=== PATIENT | female | born 1940 | race Caucasian/White ===

== ENCOUNTER 2024-08-05 11:49 | Inpatient (IN) | payer BC ==
[~2024-08-05] VITALS: Ht 167.6 cm; Wt 79.0 kg
--- NOTE | 2024-08-05 12:06 | ELECTROCARDIOGRAPH REPORT ---
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 Hammad Boston Measurements Intervals [place] Rate: 97 P: 0 NH: 0 QRS: 53 QRSD: 116 T: 11 QT: 340 QTc: 432 Interpretive Statements Atrial fibrillation Incomplete right bundle branch block Electronically Signed On 08-05-2024 22:15:[address] Hammad Boston Please click the below link to view image of tracing.
[2024-08-05 12:44] LABS: BASOPHILS % (AUTO) 0.3 % (0-1); EOSINOPHILS % (AUTO) 0.1 % (0-6); HEMATOCRIT 40.7 % (35.0-45.0); HEMOGLOBIN 13.9 g/dl (12.0-16.0); LYMPHOCYTES # (AUTO) 1.3 X10'3 (1.1-4.8); LYMPHOCYTES % (AUTO) 12.9 % (21-51); MEAN CORPUSCULAR HEMOGLOBIN 31.9 PG (27.0-31.0); MEAN CORPUSCULAR HGB CONC 34.2 g/dL (33.0-36.5); MEAN CORPUSCULAR VOLUME 93.4 FL (78-98); MONOCYTES % (AUTO) 9.9 % (2-12); NEUTROPHILS % (AUTO) 76.8 % (42-75); PLATELET COUNT 257 X10'3 (140-440); RED BLOOD COUNT 4.36 X10'6 (4.20-5.60); RED CELL DISTRIBUTION WIDTH 13.1 % (11.5-14.5); WHITE BLOOD COUNT 10.5 X10'3 (4.5-11.0)
[2024-08-05 12:56] LABS: ALANINE AMINOTRANSFERASE 19 U/L (12-78); ALBUMIN 3.6 G/DL (3.4-5.0); ALBUMIN/GLOBULIN RATIO 0.9 (1.1-1.5); ALKALINE PHOSPHATASE 103 IU/L (46-116); ANION GAP 6 (8-16); ASPARTATE AMINO TRANSFERASE 25 U/L (10-37); BILIRUBIN,TOTAL 1.3 MG/DL (0.1-1.0); BLOOD UREA NITROGEN 40 MG/DL (7-18); CALCIUM 9.1 MG/DL (8.5-10.1); CHLORIDE 100 MMOL/L (99-107); CREATININE 1.38 MG/DL (0.40-0.90); GLUCOSE 147 MG/DL (70-104); SODIUM 134 MMOL/L (135-145); TOTAL CARBON DIOXIDE 27.9 MMOL/L (24-32); TOTAL PROTEIN 7.4 G/DL (6.4-8.2); eCRCL 27 ML/MIN; eGFR 36 ML/MIN
--- NOTE | 2024-08-05 13:03 | RADIOLOGY REPORT ---
CHEST RADIOGRAPH Indication: CP Technique: Single frontal view of the chest was obtained Comparison: None FINDINGS: Lines and Tubes: None Lungs: No focal consolidation. There is fullness of the right perihilar region which appears to be fr om image rotation to the left. Pleura: No effusion. No pneumothorax. Cardiomediastinal contours: Unremarkable Bones: No acute osseous abnormality. IMPRESSION: Fullness of the right perihilar region which appears to be from image rotation to the left. Otherwis e, no evidence of acute cardiopulmonary disease.
[2024-08-05 13:05] LABS: PRO BRAIN NATRIURETIC PEPTIDE 686 PG/ML (0-450)
[2024-08-05 13:09] LABS: POTASSIUM 5.5 MMOL/L (3.5-5.1)
--- NOTE | 2024-08-05 14:09 | RADIOLOGY REPORT ---
EXAM: CT CT HEAD INDICATION: ALOC TECHNIQUE: CT of the head without intravenous contrast. Radiation Dose : 1. Head: CT Dose: CTDI volume is 59 mGy. Dose-length product is 1051.9 mGy*cm The dose indicators for CT are the volume Computed Tomography (CT) Dose Index (CTDIvol) and the Dose Length Product (DLP), and are measured in units of mGy and mGy-cm, respectively. These indicators are not patient dose, but values generated from the CT scanner acquisition factors. The report includes radiation exposure data for exposures received during this examination. COMPARISON: None FINDINGS: There is no evidence of acute intracranial hemorrhage, extra-axial collection, mass effect, midline s hift, herniation or hydrocephalus. The ventricles, sulci and cisterns are age appropriate. The mullins-white differentiation is intact. Patchy periventricular and subcortical white matter hypoattenuation is nonspecific but may be related to small vessel ischemic disease. The visualized paranasal sinuses and mastoid air cells are clear. The surrounding soft tissues and osseous structures are unremarkable. IMPRESSION: No acute intracranial abnormality. Radiation optimization: All CT scans at this facility use at least one of these dose optimization francisca hniques: automated exposure control mA and/or kV adjustment per patient size (includes targeted exam s where dose is matched to clinical indication) or iterative reconstruction.
--- NOTE | 2024-08-05 15:28 | Physician Documentation ---
History of Present Illness ~ Chief Complaint: ALOC Stated Complaint: WEAKNESS Time Seen by MD: 12:18 OK to notify your PCP?: Yes Primary Medical Doctor: UNKNOWN Mode of Arrival: EMS HPI 84-year-old female patient was brought to the emergency room by ambulance because she was found to be in stool lying down. She told me that she fell because she lost her balance. Now she is feeling much improved. She lives alone and she has progressive dementia since her passed. Medication Reconciliation Allergies: Coded Allergies: No Known Allergies (Unverified , 08/05/24) Review of Systems ROS As stated above in the HPI, otherwise all systems are reviewed and negative. Physical Exam Vital Signs: Temperature: 98.1, Heart Rate: 102, Respiratory Rate: 18, BP: 140/82, Pulse Oximetry: 98, Weight: 79.000 Oxygen Flow Rate: 0 Physical Exam Reviewed vital signs and they are well within normal range. Const: Not in acute cardiopulmonary distress Head: Atraumatic Eyes: Normal Conjunctiva ENT: Normal External Ears, Nose and Mouth. Moist mucous membranes Neck: Full range of motion. No meningismus Resp: Clear to auscultation bilaterally. Normal work of breathing Cardio: Regular rate and rhythm, no murmurs. Skin well perfused Abd: Soft, non-tender, non-distended. Normal bowel sounds. No rebound or guarding Skin: No petechiae or rashes. Warm and dry Back: No midline or flank tenderness Ext: No cyanosis, or edema Neuro: Awake and alert Psych: Normal Mood and Affect Progress Results/Orders Results/Orders Orders - DONTAE MIRZA MD Chest,Single View (08/05/24 12:46) Monitor (08/05/24 12:02) Saline Lock (08/05/24 12:02) Oxygen (08/05/24 12:02) Ct Head (08/05/24 13:50) Completed Orders - DONTAE MIRZA MD Chest,Single View (08/05/24 12:46) Cbc/Diff (08/05/24 12:02) PBNP (08/05/24 12:02) Electrocardiogram (08/05/24 12:02) CMP (08/05/24 12:02) Hs Troponin I W Calculations (08/05/24 12:02) Hs Troponin I W Calculations (08/05/24 14:02) Hs Troponin I W Calculations (08/05/24 15:02) Ct Head (08/05/24 13:50) Vital Signs 08/05/24 08/05/24 08/05/24 08/05/24 11:56 12:03 12:03 13:49 Temp 98.1 Pulse 110 107 102 Resp 16 16 18 B/P (MAP) 146/70 120/65 (83) 140/82 (101) Pulse Ox 98 100 98 O2 Flow Rate 0 0 0 Laboratory Tests Test 08/05/24 12:27 08/05/24 14:09 08/05/24 14:46 White Blood Count 10.5 Red Blood Count 4.36 Hemoglobin 13.9 Hematocrit 40.7 Mean Corpuscular Volume 93.4 Mean Corpuscular Hemoglobin 31.9 H Mean Corpuscular Hemoglobin Concent 34.2 Red Cell Distribution Width 13.1 Platelet Count 257 Mean Platelet Volume 8.0 Neutrophils (%) (Auto) 76.8 H Lymphocytes (%) (Auto) 12.9 L Monocytes (%) (Auto) 9.9 Eosinophils (%) (Auto) 0.1 Basophils (%) (Auto) 0.3 Neutrophils # (Auto) 8.0 H Lymphocytes # (Auto) 1.3 Monocytes # (Auto) 1.0 H Eosinophils # (Auto) 0.0 Basophils # (Auto) 0.0 CBC Comment Sodium Level 134 L Potassium Level 5.5 H Chloride Level 100 Carbon Dioxide Level 27.9 Anion Gap 6 L Blood Urea Nitrogen 40 H Creatinine 1.38 H Estimated GFR/1.73 m2 36 BUN/Creatinine Ratio 29.0 H Glucose Level 147 H Calcium Level 9.1 Total Bilirubin 1.3 H Aspartate Amino Transf (AST/SGOT) 25 Alanine Aminotransferase (ALT/SGPT) 19 Alkaline Phosphatase 103 Troponin I High Sensitivity 24 35 39 Pro-B-Type Natriuretic Peptide 686 H Total Protein 7.4 Albumin 3.6 Globulin 3.8 Albumin/Globulin Ratio 0.9 L Chemistry Comments Troponin I High Sens Percent Delta 45 11 Troponin I Hi Sens Absolute Change 11 4 Medical Decision Making Findings During the physical examination, the findings suggestive of acute life- threatening condition such as JVD, tracheal deviation, acidotic breathing, noisy stridorous breath sounds, pulses paradoxus, muffled heart sounds, unequal breath sounds, abdominal rigidity and rebound tenderness, focal neurological deficits, cool clammy skin, severe hypotension, severe tachycardia or bradycardia are absent. Patient's lab results CBC CMP reassuring except elevated BUN and creatinine at 40/1.[address] is negative for acute processes. Her troponin is 24/35/39. As she was stabilized we did the road test and she could not ambulate well and she is at a high-risk of falling and injuring herself. Therefore she is admitted to the hospital for physical therapy evaluation and treatment. DISCLAIMER Inadvertent spelling and grammatical errors,inadvertent clinic coordinator errors,syntax errors, grammatical errors, and spelling errors are likely due to EMR/dictation software use and do not reflect on the overall quality of patient care. Note that the electronic time recorded on this note does not necessarily reflect the actual time of the patient encounter. Departure Disposition: ADMITTED INPATIENT Impression: Primary Impression: Dementia Additional Impression: Unable to ambulate Referrals: NO PRIMARY CARE PROVIDER (PCP) Signature Scribe Signature: x Attestation: DONTAE Patel MD August 05, 2024 15:28
[2024-08-05] MEDS ORDERED: potassium Cl 20 mEq SR tablet PO PRN (15:30)
[2024-08-05] MEDS ORDERED: potassium Cl 40MEQ/1/2NS 520ml 520 ML IV PRN (15:30)
[2024-08-05] MEDS ORDERED: magnesium sulf-water 2g/50mL 50 ML IV PRN (15:30)
[2024-08-05] MEDS ORDERED: mag hydrox/Alum hydrox/simeth 30ml oral suspension PO PRN (15:30)
[2024-08-05] MEDS ORDERED: magnesium hydroxide 30ml (MOM) UD suspension PO PRN (15:30)
[2024-08-05] MEDS ORDERED: ondansetron 4mg rapidly disintigrating tab PO PRN (15:30)
[2024-08-05] MEDS ORDERED: ondansetron/PF 4mg/2ml inj IV PRN (15:30)
[2024-08-05] MEDS ORDERED: magnesium sulf-water 4G/100mL 100 ML IV PRN (15:30)
[2024-08-05] MEDS ORDERED: acetaminophen 325mg tablet PO PRN ×2 (15:30)
[2024-08-05] MEDS ORDERED: LISI5TAB22 PO (16:18)
[2024-08-05] MEDS ORDERED: TRIA1TAB5 PO (16:18)
[2024-08-05] MEDS: normal saline 1000ml 1,000 ML IV SCH (16:19)
[2024-08-05] MEDS: PERFLUTREN PROTEIN-A MICROSPHR (Optison) 0.22 MG/ML 3ML VIAL IV ONE (16:20)
--- NOTE | 2024-08-05 16:23 | HISTORY AND PHYSICAL ---
History & Physical Providers to CC ~ History of Present Illness Reason for Admit\Complaint: Metabolic encephalopathy, hyperkalemia, KAMRAN, afib rvr History of Present Illness Ana Lilia Steel is a 84-year-old female with a past medical history of hypertension, hyperlipidemia, CVA 10 years ago, dementia who was brought to the ED after unwitnessed mechanical fall that occurred today. Per patient's son at bedside, patient was found covered in feces after a fall. Patient's son reports patient experiencing severe bilateral lower extremity weakness along with altered level consciousness including incoherent speech that is not her baseline. Patient denies prior KS/CAD, cardiac arrhythmia, CKD, DVT/PE, or GIB. Patient denies chest pain, palpitations, shortness of breath, abdominal pain, n/v. Initial diagnostic findings are notable for hyperkalemia, renal insufficiency, EKG indicating AFib at a rate of 97 bpm without ischemic changes. On my physical assessment on admission, patient's cognition improved significantly with A&Ox3. Patient is to be admitted for further workups and treatment. Allergies: Coded Allergies: No Known Allergies (Unverified , 08/05/24) Past Medical History Past Medical History Hypertension Hyperlipidemia CVA, 10 years ago Dementia Past Surgical History Surgical History Comment Noncontributory Past Social History Social History Comment Alcohol: Denies Tobacco: Denies, never Illicit Drug use: Denies Living situation: Lives at home alone ROS ROS Other than positives in HPI, all 14 review of systems are negative Exam Vitals: Vital Signs Date Time Temp Pulse Resp B/P (MAP) Pulse Ox O2 Delivery O2 Flow Rate FiO2 08/05/24 13:49 102 18 140/82 (101) 98 0 08/05/24 11:56 98.1 General: A&Ox 3, NAD HEENT: Normocephalic, PERRLA Neck: Supple, trachea midline, no JVD Chest: Clear to auscultation bilaterally Cardiovascular: IRIR Abdomen: Soft and nontender Extremities: No cyanosis/clubbing/or edema Central Nervous System: No focal deficits Musculoskeletal: No paraspinal muscle tenderness, no muscle spasm Skin: Intertrigo, inguinal Diagnostic Data Last Recorded Lab Results: 08/05/24 1227 08/05/24 1227 Additional Plan # Dehydration # Hyperkalemia # Hyponatremia # Metabolic encephalopathy 2/2 above # Dementia # Gait imbalance # Generalized weakness # KAMRAN vs CKD -diarrhea today, reported poor oral intake; CXR unremarkable -Lokelma, IVNS; follow labs including UA, procal # Atrial fibrillation w/ RVR, CHADS-VASc 6 -tele in 110s, start Eliquis, metoprolol tart; follow TTE, TSH/T4 # HTN # HLD # Hx CVA, 10 yrs ago unknown cause -follow lipid panel, prn hydralazine, start metoprolol tart, aspirin, statin # Intertrigo, inguinal -topical angifungal DVT/VTE Prophylaxis: Eliquis Code Status: DNR/DNI Disposition: Admit on tele I spent a total of 35 minutes discussing Advanced Care Planning measures with the patient and her son at bedside. Advance care planning: Discussed with patient the importance of advance care planning in case of emergent situation. We discussed various resuscitative measures/ ACP with the patient at the time of admission. Patient voiced understanding and patient has decided on a DNR/DNI status. Date of Service: August 05, 2024 Billing Provider: SAMMY FLOYD Common Visit Codes: 70918-[id number] INP/OBS CARE (HIGH) Secondary Visit Codes: [id number]-[id number] CARE PLAN 30 MINUTES SAMMY FLOYD August 05, 2024 16:23
[2024-08-05] MEDS ORDERED: metoprolol succinate 25mg (24-HOUR) SR. Tablet PO ONE (16:25)
[2024-08-05] MEDS ORDERED: PATIROMER CALCIUM SORBITEX 8.4 GM POWD.PACK PO ONE (16:35)
[2024-08-05 16:40] LABS: BILIRUBIN,URINE NEGATIVE (Neg); CLARITY,URINE SLIGHTLY CLOUDY (Clear); COLOR,URINE YELLOW (Yellow); GLUCOSE, URINE NEGATIVE (Neg); KETONES,URINE NEGATIVE (Neg); LEUKOCYTE ESTERASE ,URINE MODERATE (Neg); NITRITES, URINE NEGATIVE (Neg); OCCULT BLOOD,URINE SMALL (Neg); PH,URINE 6.5 (4.8-8.0); PROTEIN,URINE NEGATIVE (Neg); UROBILINOGEN,URINE 0.2 E.U/dL (0.2-1.0)
[2024-08-05 16:48] LABS: UA COLLECTION TYPE VOIDED
[2024-08-05 16:50] LABS: TOTAL PROTEIN,URINE RANDOM 22.5 MG/DL
[2024-08-05 16:54] LABS: AMORPHOUS URATES 1+; BACTERIA,URINE 2+ /HPF (Neg); MUCUS STRANDS FEW /LPF (Neg); SQUAMOUS EPITHELIAL CELL,UR FEW /LPF (FEW); URIC ACID CRYSTALS FEW /HPF (NEGATIVE); WBC,URINE 20-30 /HPF (0-4)
[2024-08-05] MEDS: aspirin 81mg, enteric-coated 1 TAB TABLET.DR PO ONE (17:10)
[2024-08-05] MEDS: metoprolol tartrate 1mg/ml inj IV ONE (17:11)
[2024-08-05] MEDS: SODIUM ZIRCONIUM CYCLOSILICATE 10 GM POWD.PACK PO ONE (17:11)
[2024-08-05 18:55] VITALS: BP 135/65; PULSE 73; RESP 16; TEMP 97.8; O2SAT 97
[2024-08-05] MEDS: metoprolol tartrate 25mg tablet PO SCH (19:15)
[2024-08-05] MEDS: docusate sod 100mg capsule PO SCH (19:15)
[2024-08-05] MEDS: nystatin 15 GM powder TP SCH (19:16)
[2024-08-05] MEDS: atorvastatin 20mg tablet PO SCH (19:16)
[2024-08-05] MEDS: K and/or MAG REPLACEMENT MC SCH (19:16)
[2024-08-05] MEDS: apixaban 5mg tablet PO SCH (19:16)
[2024-08-05 20:00] VITALS: RESP 16; O2SAT 97
[2024-08-05] MEDS ORDERED: heparin, porcine 5000 units/ml vial SQ SCH (20:00)
[2024-08-05 22:00] VITALS: BP 98/76; PULSE 61; RESP 18; TEMP 96.4; O2SAT 99
--- NOTE | 2024-08-05 22:19 | CARDIOLOGY REPORT ---
APPROVED REPORT EXAM: Comprehensive 2D, Doppler, and color-flow Echocardiogram. 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 187.7 cm/s AoV VTI 33.3 cm AO Peak GR. 14.1 mmHg AO Mean GR. 7 mmHg LVOT VTI 25.08 cm LVOT Peak Rene. 134.6 cm/s RACHEL(VTI)/BSA 2.59 cm2/m2 RACHEL (VTI) 2.59 cm2 Mitral Valve MV E Velocity 94.9 cm/s MV Peak Gr. 8 mmHg MV DECEL TIME 136 ms MV PHT 28 ms MVA (PHT) 7.86 cm2 MV MGyo710.4 cm/s Tricuspid Valve RAP ESTIMATE 10 mmHg LEFT VENTRICLE LV is normal in size with mild concentric hypertrophy. Overall systolic function is normal. LVEF is 7 0%. RIGHT VENTRICLE RV is normal size and function. ATRIA Left atrium is mildly dilated. AORTIC VALVE Trileaflet AV appears sclerotic without stenosis. No insufficiency. MITRAL VALVE MV is thickened with mild annular calcification and no stenosis. Mild mitral regurgitation. TRICUSPID VALVE The tricuspid valve is normal in structure. Trace tricuspid regurgitation. PULMONIC VALVE The pulmonary valve is normal in structure. Trace pulmonic regurgitation. GREAT VESSELS The aortic root is normal in size. Ascending aorta measured at 3.5 cm. IVC is not well visualized. PERICARDIUM There is no pericardial effusion. Other Information Study Quality: Adequate Conclusion LV is normal in size with mild concentric hypertrophy. Overall systolic function is normal. LVEF is 7 0%. RV is normal size and function. Left atrium is mildly dilated. Trileaflet AV appears sclerotic without stenosis. No insufficiency. MV is thickened with mild annular calcification and no stenosis. Mild mitral regurgitation. The tricuspid valve is normal in structure. Trace tricuspid regurgitation. The pulmonary valve is normal in structure. Trace pulmonic regurgitation. Ascending aorta measured at 3.5 cm. There is no pericardial effusion.
[2024-08-06 05:00] VITALS: BP 112/80; PULSE 57; RESP 14; TEMP 97.1; O2SAT 97
[2024-08-06 06:39] LABS: BASOPHILS % (AUTO) 0.4 % (0-1); EOSINOPHILS # (AUTO) 0.2 X10'3 (0-0.9); EOSINOPHILS % (AUTO) 1.7 % (0-6); HEMATOCRIT 36.6 % (35.0-45.0); HEMOGLOBIN 12.6 g/dl (12.0-16.0); LYMPHOCYTES # (AUTO) 2.2 X10'3 (1.1-4.8); LYMPHOCYTES % (AUTO) 25.2 % (21-51); MEAN CORPUSCULAR HEMOGLOBIN 32.3 PG (27.0-31.0); MEAN CORPUSCULAR HGB CONC 34.4 g/dL (33.0-36.5); MEAN CORPUSCULAR VOLUME 93.7 FL (78-98); MEAN PLATELET VOLUME 8.6 FL (7.4-10.4); MONOCYTES # (AUTO) 0.9 X10'3 (0-0.9); MONOCYTES % (AUTO) 10.6 % (2-12); NEUTROPHILS # (AUTO) 5.4 X10'3 (1.8-7.7); NEUTROPHILS % (AUTO) 62.1 % (42-75); PLATELET COUNT 239 X10'3 (140-440); RED CELL DISTRIBUTION WIDTH 13.1 % (11.5-14.5); WHITE BLOOD COUNT 8.7 X10'3 (4.5-11.0)
[2024-08-06 07:08] LABS: ALANINE AMINOTRANSFERASE 15 U/L (12-78); ALBUMIN 2.7 G/DL (3.4-5.0); ALBUMIN/GLOBULIN RATIO 0.8 (1.1-1.5); ALKALINE PHOSPHATASE 82 IU/L (46-116); ANION GAP 4 (8-16); ASPARTATE AMINO TRANSFERASE 22 U/L (10-37); BILIRUBIN,TOTAL 1.3 MG/DL (0.1-1.0); BLOOD UREA NITROGEN 29 MG/DL (7-18); BUN/CREATININE RATIO 27.6 (10.0-20.0); CALCIUM 8.4 MG/DL (8.5-10.1); CHLORIDE 104 MMOL/L (99-107); CHOL/HDL RATIO 3.5 (0.00-4.99); CHOLESTEROL 177 MG/DL (0-200); CREATININE 1.05 MG/DL (0.40-0.90); FREE T4 (FREE THYROXINE) 1.02 NG/DL (0.73-1.40); GLUCOSE 95 MG/DL (70-104); HDL CHOLESTEROL 50 MG/DL (35-60); LDL CHOLESTEROL 117 MG/DL (50-100); MAGNESIUM 1.8 MG/DL (1.5-2.4); POTASSIUM 3.4 MMOL/L (3.5-5.1); SODIUM 136 MMOL/L (135-145); THYROID STIMULATING HORMONE 1.01 ulU/ml (0.34-4.50); TOTAL PROTEIN 5.9 G/DL (6.4-8.2); TRIGLYCERIDES 54 MG/DL (20-135); eCRCL 36 ML/MIN; eGFR 50 ML/MIN
[2024-08-06] MEDS ORDERED: metoprolol succinate 25mg (24-HOUR) SR. Tablet PO SCH (08:00)
[2024-08-06] MEDS: aspirin 81mg, enteric-coated 1 TAB TABLET.DR PO SCH (08:07)
[2024-08-06] MEDS: CefTRIAXone 2gm/D5W 50ml BAG 50 ML IV SCH (08:11)
--- NOTE | 2024-08-06 09:12 | RADIOLOGY REPORT ---
EXAM: US Retroperitoneal Limited, Renal CLINICAL INDICATION: kassy TECHNIQUE: Real-time limited ultrasound of the retroperitoneum with image documentation. COMPARISON: None FINDINGS: RIGHT KIDNEY: Unremarkable. No stones. No hydronephrosis. The right kidney measures 8.3 x 4.0 x 5.4 cm. LEFT KIDNEY: Unremarkable. No stones. No hydronephrosis. The left kidney measures 9.1 x 4.0 x 2. 8 cm. BLADDER: Urinary bladder appears normal for its size of distension. Prevoid volume 180 cc. OTHER FINDINGS: . . . . . . IMPRESSION: No acute findings in the retroperitoneum.
[2024-08-06 10:00] VITALS: BP 90/32; PULSE 60; RESP 16; TEMP 98; O2SAT 99
--- NOTE | 2024-08-06 12:57 | PROGRESS NOTE ---
Daily Progress Note Providers to CC ~ Antibiotic Timeout Antibiotic Ordered?: Yes If Yes, Indications: UTI Subjective No acute events overnight. Patient examined at bedside. No new complaints, not in acute distress. Patient denies chest pain, sob, palpitations, abdominal pain, n/v/d. Vss, labs notable for resolving acute kidney injury and resolved hyperkalemia. Renal ultrasound negative. Afib RVR, converted and controlled. Tele sinus in high 50s. TTE shows mild left atrium dilation, LVEF of 70% and without significant valvular heart disease. Lytes unremarkable, afebrile, TSH/T4 wnl. Patient is clinically and hemodynamically stable. 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: CN II-XII intact, no focal deficits Musculoskeletal: No paraspinal muscle tenderness, no muscle spasm Skin: Intertrigo, inguinal Problem\Assessment\Plan # Dehydration # Hyperkalemia # Hyponatremia # UTI- POA # Metabolic encephalopathy 2/2 above # Dementia # Gait imbalance # Generalized weakness # Prerenal KAMRAN 2/2 dehydration/vasomotor nephropathy- POA -diarrhea today, reported poor oral intake; CXR unremarkable -Lokelma, IVNS; follow labs including UA, procal -08/06: renal function improving, hyperkalemia resolved; urine positive for UTI, renal ultrasound negative; started ceftriaxone, follow culture # Atrial fibrillation w/ RVR, CHADS-VASc 6 -tele in 110s, start Eliquis, metoprolol tart; follow TTE, TSH/T4 -08/06: tele sinus in high 50s; TTE shows mild left atrium dilation, LVEF of 70% and without significant valvular heart disease. TSH/T4 wnl, lytes unremarkable. # HTN # HLD # Hx CVA, 10 yrs ago unknown cause -follow lipid panel, prn hydralazine, start metoprolol tart, aspirin, statin # Intertrigo, inguinal -topical angifungal DVT/VTE Prophylaxis: Eliquis Code Status: DNR/DNI Disposition: Admit on tele Date of Service: August 06, 2024 Billing Provider: SAMMY FLOYD Common Visit Codes: [id number] INP/OBS CARE(HIGH) SAMMY FLOYD August 06, 2024 12:57
[2024-08-06 18:00] VITALS: BP 98/52; PULSE 71; RESP 15; TEMP 98.8; O2SAT 96
[2024-08-06 20:00] VITALS: RESP 15; O2SAT 96
[2024-08-06 22:00] VITALS: BP 105/39; PULSE 64; RESP 16; TEMP 97.4; O2SAT 98
[2024-08-07 05:00] VITALS: BP 108/44; PULSE 16; RESP 14; TEMP 97.9; O2SAT 99
[2024-08-07 06:30] LABS: BASOPHILS # (AUTO) 0.1 X10'3 (0-0.2); BASOPHILS % (AUTO) 0.9 % (0-1); EOSINOPHILS # (AUTO) 0.2 X10'3 (0-0.9); EOSINOPHILS % (AUTO) 1.8 % (0-6); HEMOGLOBIN 12.1 g/dl (12.0-16.0); LYMPHOCYTES # (AUTO) 2.5 X10'3 (1.1-4.8); LYMPHOCYTES % (AUTO) 28.5 % (21-51); MEAN CORPUSCULAR HEMOGLOBIN 32.3 PG (27.0-31.0); MEAN CORPUSCULAR HGB CONC 34.5 g/dL (33.0-36.5); MEAN CORPUSCULAR VOLUME 93.6 FL (78-98); MEAN PLATELET VOLUME 8.8 FL (7.4-10.4); MONOCYTES # (AUTO) 0.9 X10'3 (0-0.9); MONOCYTES % (AUTO) 10.3 % (2-12); NEUTROPHILS # (AUTO) 5.1 X10'3 (1.8-7.7); NEUTROPHILS % (AUTO) 58.5 % (42-75); PLATELET COUNT 217 X10'3 (140-440); RED BLOOD COUNT 3.74 X10'6 (4.20-5.60); RED CELL DISTRIBUTION WIDTH 13.2 % (11.5-14.5); WHITE BLOOD COUNT 8.7 X10'3 (4.5-11.0)
[2024-08-07 07:02] LABS: ALANINE AMINOTRANSFERASE 16 U/L (12-78); ALBUMIN 2.3 G/DL (3.4-5.0); ALBUMIN/GLOBULIN RATIO 0.7 (1.1-1.5); ALKALINE PHOSPHATASE 85 IU/L (46-116); ANION GAP 6 (8-16); ASPARTATE AMINO TRANSFERASE 21 U/L (10-37); BILIRUBIN,TOTAL 0.6 MG/DL (0.1-1.0); BLOOD UREA NITROGEN 20 MG/DL (7-18); BUN/CREATININE RATIO 20.8 (10.0-20.0); CALCIUM 8.1 MG/DL (8.5-10.1); CHLORIDE 108 MMOL/L (99-107); CREATININE 0.96 MG/DL (0.40-0.90); GLUCOSE 95 MG/DL (70-104); MAGNESIUM 1.7 MG/DL (1.5-2.4); POTASSIUM 3.1 MMOL/L (3.5-5.1); SODIUM 141 MMOL/L (135-145); TOTAL CARBON DIOXIDE 27.5 MMOL/L (24-32); TOTAL PROTEIN 5.5 G/DL (6.4-8.2); eCRCL 39 ML/MIN; eGFR 55 ML/MIN
[2024-08-07 10:00] VITALS: BP 117/61; PULSE 62; RESP 14; TEMP 98.6; O2SAT 98
[2024-08-07] MEDS: potassium Cl 20 mEq SR tablet PO PRN (10:01)
--- NOTE | 2024-08-07 10:04 | PROGRESS NOTE ---
Daily Progress Note Providers to CC ~ Antibiotic Timeout Antibiotic Ordered?: Yes Subjective No acute events overnight. Patient examined at bedside. No new complaints, not in acute distress. Patient denies chest pain, sob, palpitations, abdominal pain, n/v/d. Vss, labs notable for resolving acute kidney injury. Renal ultrasound negative. Urine culture resulted positive for E.coli, continued on ceftriaxone. Afib RVR, converted and controlled. Tele sinus in high 50s. Patient is clinically and hemodynamically stable. 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, no focal deficits Musculoskeletal: No paraspinal muscle tenderness, no muscle spasm Skin: Intertrigo, inguinal Problem\Assessment\Plan # Dehydration # Hyperkalemia # Hyponatremia # UTI- POA # Metabolic encephalopathy 2/2 UTI # Dementia # Gait imbalance # Generalized weakness # Prerenal KAMRAN 2/2 dehydration/vasomotor nephropathy- POA -diarrhea today, reported poor oral intake; CXR unremarkable -Lokelma, IVNS; follow labs including UA, procal -08/06: renal function improving, hyperkalemia resolved; urine positive for UTI, renal ultrasound negative; started ceftriaxone, follow culture -08/07: urine culture resulted positive for E.coli, continue ceftriaxone # Atrial fibrillation w/ RVR, CHADS-VASc 6 -tele in 110s, start Eliquis, metoprolol tart; follow TTE, TSH/T4 -08/06: tele sinus in high 50s; TTE shows mild left atrium dilation, LVEF of 70% and without significant valvular heart disease. TSH/T4 wnl, lytes unremarkable. # HTN # HLD # Hx CVA, 10 yrs ago unknown cause -follow lipid panel, prn hydralazine, start metoprolol tart, aspirin, statin # Intertrigo, inguinal -topical angifungal DVT/VTE Prophylaxis: Eliquis Code Status: DNR/DNI Disposition: Admit on tele Date of Service: August 07, 2024 Billing Provider: SAMMY FLOYD Common Visit Codes: [id number] INP/OBS CARE(HIGH) SAMMY FLOYD August 07, 2024 10:04
[2024-08-07 18:00] VITALS: BP 107/50; PULSE 71; RESP 20; TEMP 97.5; O2SAT 98
[2024-08-07 22:00] VITALS: BP 139/45; PULSE 72; RESP 16; TEMP 98.5; O2SAT 95
[2024-08-08 06:00] VITALS: BP 131/52; PULSE 70; RESP 13; TEMP 98.7; O2SAT 97
[2024-08-08 06:37] LABS: BASOPHILS # (AUTO) 0.1 X10'3 (0-0.2); BASOPHILS % (AUTO) 0.9 % (0-1); EOSINOPHILS # (AUTO) 0.2 X10'3 (0-0.9); EOSINOPHILS % (AUTO) 1.9 % (0-6); HEMATOCRIT 36.3 % (35.0-45.0); HEMOGLOBIN 12.3 g/dl (12.0-16.0); LYMPHOCYTES # (AUTO) 2.4 X10'3 (1.1-4.8); LYMPHOCYTES % (AUTO) 28.1 % (21-51); MEAN CORPUSCULAR HEMOGLOBIN 31.6 PG (27.0-31.0); MEAN CORPUSCULAR HGB CONC 33.8 g/dL (33.0-36.5); MEAN CORPUSCULAR VOLUME 93.4 FL (78-98); MEAN PLATELET VOLUME 8.6 FL (7.4-10.4); MONOCYTES # (AUTO) 0.8 X10'3 (0-0.9); MONOCYTES % (AUTO) 9.6 % (2-12); NEUTROPHILS % (AUTO) 59.5 % (42-75); PLATELET COUNT 227 X10'3 (140-440); RED BLOOD COUNT 3.88 X10'6 (4.20-5.60); RED CELL DISTRIBUTION WIDTH 13.1 % (11.5-14.5); WHITE BLOOD COUNT 8.4 X10'3 (4.5-11.0)
[2024-08-08 06:56] LABS: ALANINE AMINOTRANSFERASE 19 U/L (12-78); ALBUMIN 2.4 G/DL (3.4-5.0); ALBUMIN/GLOBULIN RATIO 0.7 (1.1-1.5); ALKALINE PHOSPHATASE 100 IU/L (46-116); ANION GAP 6 (8-16); ASPARTATE AMINO TRANSFERASE 27 U/L (10-37); BILIRUBIN,TOTAL 0.7 MG/DL (0.1-1.0); BLOOD UREA NITROGEN 15 MG/DL (7-18); BUN/CREATININE RATIO 16.9 (10.0-20.0); CALCIUM 8.3 MG/DL (8.5-10.1); CHLORIDE 109 MMOL/L (99-107); CREATININE 0.89 MG/DL (0.40-0.90); GLUCOSE 95 MG/DL (70-104); MAGNESIUM 1.5 MG/DL (1.5-2.4); POTASSIUM 3.8 MMOL/L (3.5-5.1); SODIUM 141 MMOL/L (135-145); TOTAL CARBON DIOXIDE 25.7 MMOL/L (24-32); TOTAL PROTEIN 5.8 G/DL (6.4-8.2); eCRCL 42 ML/MIN; eGFR 60 ML/MIN
[2024-08-08 07:30] VITALS: RESP 13; O2SAT 97
[2024-08-08 10:00] VITALS: BP 135/57; PULSE 74; RESP 18; TEMP 97.1; O2SAT 94
[2024-08-08] MEDS ORDERED: CIPR-202 PO (11:04)
[2024-08-08] MEDS ORDERED: ASPI-1071 PO (11:04)
[2024-08-08] MEDS ORDERED: APIX5TAB3 PO (11:04)
[2024-08-08] MEDS ORDERED: DOCU100C40 PO (11:04)
[2024-08-08] MEDS ORDERED: ATOR20TA66 PO (11:04)
[2024-08-08] MEDS ORDERED: NYSPWD TP (11:04)
--- NOTE | 2024-08-08 18:05 | DISCHARGE SUMMARY ---
Discharge Summary Providers to CC ~ Discharge Summary Admission Diagnosis: metabolic encephalopathy, hyperkalemia, kamran Hospital Course DATE OF ADMISSION: 08/05/24 DATE OF DISCHARGE: 08/08/24 Discharge Diagnosis\Comment: Dehydration Hyperkalemia 2/2 KAMRAN Hyponatremia UTI- POA Metabolic encephalopathy 2/2 UTI Dementia Gait imbalance Generalized weakness Prerenal KAMRAN 2/2 dehydration/vasomotor nephropathy- POA Atrial fibrillation w/ RVR, CHADS-VASc 6 HTN HLD Hx CVA, 10 yrs ago unknown cause Intertrigo, inguinal Operations\Procedures: None Consultants: None Complications: None Condition on DC: Stable for transfer New Medications: PENDING: Ciprofloxacin HCl (Ciprofloxacin HCl) 500 Mg Tab 1 TAB PO BID for 5 Days, #10 TAB PENDING: Apixaban (Eliquis) 5 Mg Tablet 5 MG PO BID for 30 Days, #60 TAB PENDING: Aspirin (Ecotrin*) 81 Mg Tablet.dr 1 TAB PO DAILY for 30 Days, #30 TAB.SR PENDING: Atorvastatin Calcium (Atorvastatin Calcium) 20 Mg Tablet 20 MG PO HS for 30 Days, #30 TAB PENDING: Docusate Sodium (Docusate Sodium) 100 Mg Caps 100 MG PO DAILY for 30 Days, #30 CAP PENDING: Nystatin (NYSTOP powder) 100,000 Unit/Gram Gra 1 APPLIC TP BID for 10 Days, #10 GM Continued Medications: Lisinopril (Lisinopril) 5 Mg Tablet 1 TAB PO DAILY Discontinued Medications: Triamterene/Hydrochlorothiazid (Triamterene-Hctz 75-50 Mg Tab) 75 Mg-50 Mg Tablet 1 TAB PO DAILY Discharge Summary: History of Present Illness Ana Lilia Steel is a 84-year-old female with a past medical history of hypertension, hyperlipidemia, CVA 10 years ago, dementia who was brought to the ED after unwitnessed mechanical fall that occurred today. Per patient's son at bedside, patient was found covered in feces after a fall. Patient's son reports patient experiencing severe bilateral lower extremity weakness along with altered level consciousness including incoherent speech that is not her baseline. Patient denies prior ID/CAD, cardiac arrhythmia, CKD, DVT/PE, or GIB. Patient denies chest pain, palpitations, shortness of breath, abdominal pain, n/v. Initial diagnostic findings are notable for hyperkalemia, renal insufficiency, EKG indicating afib at a rate of 97 bpm without ischemic changes. On my physical assessment on admission, patient's cognition improved significantly with A&Ox3. Patient is to be admitted for further workups and treatment. Hospital Course Further diagnostic findings revealed atrial fibrillation with RVR in 110s brandt cated on telemetry, abnormal renal function, mild hyperkalemia, urinalysis positive for urinary tract infection. Atrial fibrillation with RVR was treated with IV metoprolol tartrate which converted rhythm and controlled rate. Pertinent negative findings were negative procal, no leukocytosis, afebrile, negative renal ultrasound, negative head CT, unremarkable chest x-ray. TTE was notable for mildly dilated left atrium with normal systolic function, LVEF 70% without significant valvular heart disease. Patient was treated with empirical antibiotics, intravenous fluids, oral potassium binder, bbx, and DOAC for stroke prophylaxis with afib. Due to becoming slightly bradycardic, bbx was held. Urine culture resulted positive for E.coli with sensitivities to ceftriaxone which patient was treated with. Patient did not experience further complications throughout the entire hospital stay and responded very well to treatment. Patient was seen and examined on the day of discharge. On day of discharge, vss and labs notable for resolving acute kidney injury and normalized serum potassium. Tele sinus in high 50s-70s. All labs, diagnostic workups, discharge plan discussed with patient in details during visit before discharge. All questions and concerns answered to the best of my professional knowledge. Patient is to be discharged to rehab for continued management. Physical Exam General: Generalized weakness, A&Ox 3, NAD HEENT: Normocephalic, PERRLA Neck: Supple, trachea midline, no JVD Chest: Clear to auscultation bilaterally Cardiovascular: RRR, S1&S2 GI: Soft and nontender Extremities: No cyanosis/clubbing/or edema COTA: CN II-XII intact, no focal deficits Musculoskeletal: No paraspinal muscle tenderness, no muscle spasm Skin: Intertrigo, inguinal *Problems/Diagnosis: (1) Atrial fibrillation Status: Acute Total Time Spent on D/C: > 30 Minutes Date of Service: August 08, 2024 Billing Provider: SAMMY FLOYD Common Visit Codes: [id number]-XCN/OBS DISCH DAY >30min SAMMY FLOYD August 08, 2024 18:05
== END 2024-08-08 15:48 | DRG 682 ==
LOC: ER 11:50 → ED HOLD 15:34 → ORTHO 4S 18:54
PROVIDERS: ADMIT Nurse Practitioner Family; ATTEND Nurse Practitioner Family
DX: N17.0 Acute kidney failure with tubular necrosis (principal); G93.41 Metabolic encephalopathy; N39.0 Urinary tract infection, site not specified; E87.1 Hypo-osmolality and hyponatremia; I48.91 Unspecified atrial fibrillation; E86.0 Dehydration; Z66 Do not resuscitate; E87.5 Hyperkalemia; F03.90 Unspecified dementia, unspecified severity, without behavioral disturbance, psychotic disturbance, mood disturbance, and anxiety; I10 Essential (primary) hypertension; E78.5 Hyperlipidemia, unspecified; L30.4 Erythema intertrigo; Z86.73 Personal history of transient ischemic attack (TIA), and cerebral infarction without residual deficits; Z79.01 Long term (current) use of anticoagulants; Z79.82 Long term (current) use of aspirin
CPT/HCPCS: 36415; 70450; 71045; 76770; 80053; 80061; 81001; 82570; 83735; 83880; 84133; 84145; 84156; 84300; 84439; 84443; 84484; 84540; 85025; 87077; 87081; 87088; 87186; 92508; 92616; 93005; 93306; 96361; 96374; 97110; 97161; 97530; 99285; A6258; G0378; J0696; J3490; J7030